=== PATIENT | male | born 2000 | race Two or more races ===

== ENCOUNTER 2020-06-06 20:19 | Emergency (ER) | payer MEDICAID ==
[~2020-06-06] VITALS: Ht 177.8 cm; Wt 68.0 kg
[2020-06-06 20:29] VITALS: BP 134/82
== END 2020-06-06 20:23 | disposition left against medical advice (07) ==
LOC: EDBD 20:19 → ER 20:23
DX: R40.0 Somnolence (principal); Z53.21 Procedure and treatment not carried out due to patient leaving prior to being seen by health care provider